=== PATIENT | male | born 1990 | race Caucasian/White ===

== ENCOUNTER 2017-07-10 16:06 | Emergency (ER) | payer OTHER ==
--- NOTE | 2017-07-10 17:52 | EDM.PDOC ---
ED HPI GENERAL MEDICAL PROBLEM - General Chief Complaint: Lower Extremity Injury/Pain Stated Complaint: BODY ACHES Time Seen by Provider: 07/10/17 17:49 Source of Information: Reports: Patient - History of Present Illness INITIAL COMMENTS - FREE TEXT/NARRATIVE: HISTORY AND PHYSICAL: History of present illness: [Patient presents with several different aches and pains Firstly he is doing with right finger issue through [employer]. 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 Arnoldo Peña for this and is referred to hand specialist He has various joint aches in her shoulders knees no redness warmth or swelling involved in full range of motion, he also has a swollen toe on the left third digit this is been evaluated by podiatry Dr. Andrade with an x-ray no fracture appreciated occurred after kicking in to an object His main complaint today is that of swelling on his right lower extremity mild calf tenderness on exam slightly Homans positive no redness with sub- centimeters swelling compared to the left no fever nausea vomiting chills sweats no chest pain shortness breath headache dizziness palpitation about a urine symptoms] Review of systems: As per history of present illness and below otherwise all systems reviewed and negative. Past medical history: As per history of present illness and as reviewed below otherwise noncontributory. Surgical history: As per history of present illness and as reviewed below otherwise noncontributory. Social history: No reported history of drug or alcohol abuse. Family history: As per history of present illness and as reviewed below otherwise noncontributory. Physical exam: HEENT: Atraumatic, normocephalic, pupils reactive, negative for conjunctival pallor or scleral icterus, mucous membranes moist, throat clear, neck supple, nontender, trachea midline. Lungs: Clear to auscultation, breath sounds equal bilaterally, chest nontender. Heart: S1S2, regular, negative for clicks, rubs, or JVD. Abdomen: Soft, nondistended, nontender. Negative for masses or hepatosplenomegaly. Negative for costovertebral tenderness. Pelvis: Stable nontender. Genitourinary: Deferred. Rectal: Deferred. Extremities: Atraumatic, negative for cords or calf pain. Neurovascular unremarkable. Neuro: Awake, alert, oriented. Cranial nerves II through XII unremarkable. Cerebellum unremarkable. Motor and sensory unremarkable throughout. Exam nonfocal. Diagnostics: [Venous Doppler right lower extremity ] Therapeutics: [Continue current medications Follow-up with primary care and specialty clinic as scheduled] Impression: [No DVT Medical screening exam ] Definitive disposition and diagnosis as appropriate pending reevaluation and review of above. - Related Data Allergies Allergy/AdvReac Type Severity Reaction Status Date / Time No Known Allergies Allergy Verified 07/10/17 16:27 Home Meds: Home Meds Celecoxib [Celecoxib] 1 tab PO DAILY 07/10/17 [History] Past Medical History Other Gastrointestinal History: Chrons - Past Surgical History GI Surgical History: Reports: Other (See Below) Other GI Surgeries/Procedures: intestional surgery Social & Family History - Family History Family Medical History: Noncontributory - Tobacco Use Smoking Status *Q: Never Smoker - Recreational Drug Use Recreational Drug Use: No Review of Systems - Review of Systems Review Of Systems: ROS reveals no pertinent complaints other than HPI. ED EXAM, GENERAL - Physical Exam Exam: See Below Course - Vital Signs Last Recorded V/S: Last Vital Signs Temp 98.4 F 07/10/17 16:28 Pulse 98 07/10/17 16:28 Resp 18 07/10/17 16:28 BP 139/93 H 07/10/17 16:28 Pulse Ox 95 07/10/17 16:28 - Orders/Labs/Meds Orders: Active Orders 24 hr Category Date Time Status Venous Doppler Lwr Ext Rt [US] Stat Exams 07/10/17 16:31 Taken Labs: Laboratory Tests 07/10/17 07/10/17 07/10/17 Range/Units 16:39 16:39 16:39 WBC 8.73 (4.0-11.0) K/uL RBC 4.75 (4.50-5.90) M/uL Hgb 13.6 (13.0-17.0) g/dL Hct 41.6 (38.0-50.0) % MCV 87.6 (80.0-98.0) fL MCH 28.6 (27.0-32.0) pg MCHC 32.7 (31.0-37.0) g/dL RDW Std Deviation 41.2 (28.0-62.0) fl RDW Coeff of Nate 13 (11.0-15.0) % Plt Count 330 (150-400) K/uL MPV 9.60 (7.40-12.00) fL Neut % (Auto) 64.8 (48.0-80.0) % Lymph % (Auto) 23.0 (16.0-40.0) % [place] % (Auto) 8.7 (0.0-15.0) % Eos % (Auto) 3.3 (0.0-7.0) % Baso % (Auto) 0.2 (0.0-1.5) % Neut # (Auto) 5.7 (1.4-5.7) K/uL Lymph # (Auto) 2.0 (0.6-2.4) K/uL [place] # (Auto) 0.8 (0.0-0.8) K/uL Eos # (Auto) 0.3 (0.0-0.7) K/uL Baso # (Auto) 0.0 (0.0-0.1) K/uL Nucleated RBC % 0.0 /100WBC Nucleated RBCs # 0 K/uL INR 0.96 (0.86-1.11) C-Reactive Protein 4.79 H (0.0-0.5) mg/dL Departure - Departure Time of Disposition: 17:51 Disposition: Home, Self-Care 01 Condition: Good Clinical Impression: Encounter for medical screening examination - Discharge Information Referrals: Arnoldo Peña MD [Primary Care Provider] - Additional Instructions: The following information is given to patients seen in the emergency department who are being discharged to home. This information is to outline your options for follow-up care. We provide all patients seen in our emergency department with a follow-up referral. The need for follow-up, as well as the timing and circumstances, are variable depending upon the specifics of your emergency department visit. If you don't have a primary care physician on staff, we will provide you with a referral. We always advise you to contact your personal physician following an emergency department visit to inform them of the circumstance of the visit and for follow-up with them and/or the need for any referrals to a consulting specialist. The emergency department will also refer you to a specialist when appropriate. This referral assures that you have the opportunity for follow-up care with a specialist. All of these measure are taken in an effort to provide you with optimal care, which includes your follow-up. Under all circumstances we always encourage you to contact your private physician who remains a resource for coordinating your care. When calling for follow-up care, please make the office aware that this follow-up is from your recent emergency room visit. If for any reason you are refused follow-up, please contact the [facility] emergency department at and asked to speak to the emergency department charge nurse. - My Orders Last 24 Hours: My Active Orders 07/10/17 16:31 Venous Doppler Lwr Ext Rt [US] Stat - Assessment/Plan Last 24 Hours: My Active Orders 07/10/17 16:31 Venous Doppler Lwr Ext Rt [US] Stat
--- NOTE | 2017-07-12 18:02 | US ---
EXAM DATE: 07/10/17 PATIENT'S AGE: 26 Patient: TALHA MONTES Facility: [place], [place] Site . Site : 1990 Study: US Extremity Venous RIGHT [id number] 5:24:44 PM Ordering Physician: Shireen Bates Final Report: CLINICAL HISTORY: Right knee and calf pain and swelling for 3 days. TECHNIQUE: A compression venous ultrasound exam was performed of the right lower extremity using baires-scale imaging, color Doppler and spectral Doppler analysis. FINDINGS: Sonographic imaging of the right lower extremity demonstrates normal compressibility and color Doppler venous blood flow within the common femoral vein, deep femoral vein, and the proximal greater saphenous vein. Within the thigh, the femoral vein is patent and compressible. At a lower level, the popliteal and posterior tibial veins also show normal compressibility and color Doppler venous blood flow. Limited imaging of the contralateral groin demonstrates a normal spectral waveform and color Doppler venous blood flow within the left common femoral vein. IMPRESSION: Normal venous ultrasound exam. No evidence of deep vein thrombosis within the right lower extremity. Dictated by Sb Weathers MD @ Jul 10 2017 5:40PM (Electronic Signature) Report Signed by Proxy. MARY
== END 2017-07-10 18:06 | disposition home or self-care (01) ==
LOC: MW.ED 16:06
DX: Z13.828 Encounter for screening for other musculoskeletal disorder (principal); Z79.899 Other long term (current) drug therapy
CPT/HCPCS: 36415; 85025; 85610; 86140; 93971-26-RT; 93971-RT; 99284; 99284-25

== ENCOUNTER 2021-02-15 05:10 | Emergency (ER) | payer BC ==
--- NOTE | 2021-02-15 06:01 | EDM.PDOC ---
ED HPI GENERAL MEDICAL PROBLEM - General Chief Complaint: General Stated Complaint: FLU SYMPTOMS Time Seen by Provider: 02/15/21 05:55 - History of Present Illness INITIAL COMMENTS - FREE TEXT/NARRATIVE: History of present illness: [] The patient has been sick for 2 days. He has upper respiratory congestion cough and stomach pain. His stomach pain is better now. He has not vomited. He feels feverish and sweaty. He works on the [employer]. He is not vaccinated for COVID-19. His is using in [place] frequently fertilization and feels like she might of just gotten . This patient was seen and evaluated during the 2019 SARS-CoV-2 novel coronavirus pandemic period. Community viral transmission is ongoing at time of this encounter and the emergency department is operating under pandemic response procedures. Review of systems: As per history of present illness and below otherwise all systems reviewed and negative. Past medical history: As per history of present illness and as reviewed below otherwise noncontri butory. Surgical history: As per history of present illness and as reviewed below otherwise noncontributory. Social history: No reported history of drug or alcohol abuse. Family history: As per history of present illness and as reviewed below otherwise noncontributory. Physical exam: Constitutional - well developed, well-nourished and in no acute distress HEENT - normocephalic, no evidence of trauma - external nose and mouth normal - no mass in neck and no JVD - mucosae moist EYES - full EOM, PERRL, no icterus - no evidence of inflammation, injection, or drainage Respiratory - no respiratory distress, equal bilateral expansion, lungs clear to auscultation and no abnormal lung sounds Cardiovascular - Regular Rhythm with S1 and S2 appreciated and no murmur, gallop or rub. GI - abdomen soft without distension or organomegaly - normal bowel sounds - no guard or rebound Musculoskeletal no gross deformity of long bones or joints - no tenderness, swelling or edema Neurologic - Alert and oriented times four - CN II-XII grossly intact - motor sensory and coordination symmetrically normal Psychiatric - appropriate mood and affect with normal thought content Hematologic - No petechiae or purpura - mucosa appropriate color and sclera not pale - normal nail bed color and refill Integument - no rash or evidence of trauma - normal turgor Diagnostics: [] Therapeutics: [] Impression: [] Plan: [] Definitive disposition and diagnosis as appropriate pending reevaluation and review of above. Headache Pain Score (Numeric/FACES): 4 - Related Data Allergies Allergy/AdvReac Type Severity Reaction Status Date / Time No Known Allergies Allergy Verified 02/15/21 05:54 Home Meds: Home Meds Adalimumab [Humira Pen] 40 mg SQ ASDIRECTED 02/15/21 [History] Past Medical History Other Gastrointestinal History: Chrons Musculoskeletal History: Reports: Other (See Below) Other Musculoskeletal History: psoriatic arthitis - Past Surgical History GI Surgical History: Reports: Other (See Below) Other GI Surgeries/Procedures: intestional surgery Social & Family History - Family History Family Medical History: No Pertinent Family History - Tobacco Use Tobacco Use Status *Q: Never Tobacco User Second Hand Smoke Exposure: No - Recreational Drug Use Recreational Drug Use: No ED ROS GENERAL - Review of Systems Review Of Systems: Comprehensive ROS is negative, except as noted in HPI. ED EXAM, GENERAL - Physical Exam Exam: See Below Free Text/Narrative:: My physical exam is in the HPI Course - Vital Signs Last Recorded V/S: Last Vital Signs Temp 37.1 C 02/15/21 05:46 Pulse 108 H 02/15/21 05:46 Resp 16 02/15/21 05:46 BP 121/75 02/15/21 05:46 Pulse Ox 98 02/15/21 05:46 - Orders/Labs/Meds Orders: Active Orders 24 hr Category Date Time Status INFLUENZA A+B AG SCREEN [RM] Stat Lab 02/15/21 06:00 Received Isolation [COMM] Routine Oth 02/15/21 05:59 Active Labs: Laboratory Tests 02/15/21 Range/Units 06:00 SARS-CoV-2 RNA (LARRY) POSITIVE H (NEGATIVE) Departure - Departure Time of Disposition: 06:44 Disposition: Home, Self-Care 01 Condition: Good Clinical Impression: COVID-19 - Discharge Information Instructions: COVID-19 Vaccine Information, COVID-19 Frequently Asked Questions, 10 Things You Can Do to Manage Your COVID-19 Symptoms at Home - [facility] (12/20/2019), COVID-19: Quarantine vs. Isolation - [facility] (06/06/2020), COVID-19: What to Do if You Are Sick - [facility] (06/20/2020) Referrals: Arnoldo Peña MD [Primary Care Provider] - Forms: ED Department Discharge Additional Instructions: [facility] - Primary Care [address] [place] [address] [facility] [address] [place] [address] The following information is given to patients seen in the emergency department who are being discharged to home. This information is to outline your options for follow-up care. We provide all patients seen in our emergency department with a follow-up referral. The need for follow-up, as well as the timing and circumstances, are variable depending upon the specifics of your emergency department visit. If you don't have a primary care physician on staff, we will provide you with a referral. We always advise you to contact your personal physician following an emergency department visit to inform them of the circumstance of the visit and for follow-up with them and/or the need for any referrals to a consulting specialist. The emergency department will also refer you to a specialist when appropriate. This referral assures that you have the opportunity for follow-up care with a specialist. All of these measure are taken in an effort to provide you with optimal care, which includes your follow-up. Under all circumstances we always encourage you to contact your private physician who remains a resource for coordinating your care. When calling for follow-up care, please make the office aware that this follow-up is from your recent emergency room visit. If for any reason you are refused follow-up, please contact the [facility] Emergency Department at and asked to speak to the emergency department charge nurse. Sepsis Event Note (ED) - Focused Exam Vital Signs: Vital Signs Temp Pulse Resp BP Pulse Ox 02/15/21 05:46 37.1 C 108 H 16 121/75 98 - My Orders Last 24 Hours: My Active Orders 02/15/21 05:59 Isolation [COMM] Routine 02/15/21 06:00 INFLUENZA A+B AG SCREEN [RM] Stat - Assessment/Plan Last 24 Hours: My Active Orders 02/15/21 05:59 Isolation [COMM] Routine 02/15/21 06:00 INFLUENZA A+B AG SCREEN [RM] Stat
== END 2021-02-15 06:59 | disposition home or self-care (01) ==
LOC: MW.ED 05:10
DX: U07.1 COVID-19 (principal)
CPT/HCPCS: 87804; 99284; U0002

== ENCOUNTER 2022-09-14 20:07 | Emergency (ER) | payer BC ==
[2022-09-14] MEDS ORDERED: Ibuprofen 600 MG Tab PO ONE (20:19)
[2022-09-14] MEDS ORDERED: Diphtheria,Pertussis(Acell),Tetanus Vaccine 0.5 ML Syringe IM ONE (20:19)
[2022-09-14] MEDS ORDERED: Cephalexin 500 MG Cap PO ONE (20:19)
== END 2022-09-14 22:30 | disposition home or self-care (01) ==
LOC: MW.ED 20:07
DX: S02.2XXA Fracture of nasal bones, initial encounter for closed fracture (principal); S09.90XA Unspecified injury of head, initial encounter; S01.511A Laceration without foreign body of lip, initial encounter; Z23 Encounter for immunization; Y04.0XXA Assault by unarmed brawl or fight, initial encounter; Y92.89 Other specified places as the place of occurrence of the external cause; Y99.0 Civilian activity done for income or pay
CPT/HCPCS: 70450; 70486; 72125; 73080; 90471; 90715; 99284; A9270

== ENCOUNTER 2024-09-08 17:30 | Emergency (ER) | payer BC, MEDICAID ==
[2024-09-08 19:26] LABS: BASOPHILS ABSOLUTE AUTO 0.02 K/uL (0.00-0.20); BASOPHILS PERCENT AUTO 0.2 % (0.0-1.0); EOSINOPHILS ABSOLUTE AUTO 0.28 K/uL (0.00-0.45); EOSINOPHILS PERCENT AUTO 2.7 % (0.0-6.0); HEMATOCRIT 54.2 % (42.0-52.0); HEMOGLOBIN 17.8 g/dL (14.0-18.0); IMMATURE GRAN ABSOLUTE AUTO 0.04 K/uL (0.00-0.05); IMMATURE GRAN PERCENT AUTO 0.4 % (0.0-0.4); LYMPHOCYTES ABSOLUTE AUTO 3.06 K/uL (1.00-4.80); LYMPHOCYTES PERCENT AUTO 29.5 % (24.0-44.0); MEAN CORPUSCULAR HGB CONC 32.8 g/dL (32.0-36.0); MEAN CORPUSCULAR VOLUME 88.4 fL (83.0-99.0); MEAN PLATELET VOLUME 9.3 fL (9.4-12.4); MONOCYTES ABSOLUTE AUTO 0.72 K/uL (0.00-0.80); MONOCYTES PERCENT AUTO 6.9 % (0.0-8.0); NEUTROPHILS ABSOLUTE AUTO 6.25 K/uL (1.80-7.70); NEUTROPHILS PERCENT AUTO 60.3 % (41.0-71.0); PLATELET COUNT,PLT 248 K/uL (150-400); RED BLOOD CELL COUNT 6.13 M/uL (4.52-5.90); WHITE BLOOD CELL COUNT,WBC 10.37 K/uL (3.9-11.3)
[2024-09-08] MEDS: Alum Hydrox/Mag Hydrox/Simeth 15 ML, Lidocaine 2% 5 ML PO ONE (19:32)
[2024-09-08 19:49] LABS: A/G RATIO 0.8 (0.9-1.6); ALBUMIN 3.8 g/dL (3.4-5.0); BILIRUBIN TOTAL 0.5 mg/dL (0.2-1.0); CALCIUM 8.9 mg/dL (8.5-10.1); CARBON DIOXIDE,CO2 26.4 mmol/L (21.0-32.0); CREATININE 1.5 mg/dL (0.8-1.3); EST CRCL DRUG DOSING (CG) 68.74 mL/min; MAGNESIUM 2.7 mg/dL (1.8-2.4); POTASSIUM,K 3.8 mmol/L (3.5-5.1); PROTEIN TOTAL,TP 8.8 g/dL (6.4-8.2)
== END 2024-09-08 20:55 | disposition home or self-care (01) ==
LOC: MW.ED 17:30
DX: R10.13 Epigastric pain (principal); Z79.899 Other long term (current) drug therapy
CPT/HCPCS: 36415; 80053; 83735; 84484; 85025; 93005; 99284; A9270; 99283